=== PATIENT | male | born 1940 | race Caucasian/White ===

== ENCOUNTER 2024-03-11 07:30 | Inpatient (IN) ==
[2024-03-11 08:18] LABS: Basophils # (Auto) 0.02 K/mcL (0.00-0.30); Basophils % (Auto) 0.2 % (0.0-2.0); Eosinophils # (Auto) 0.01 K/mcL (0.00-0.70); Eosinophils % (Auto) 0.1 % (0.0-7.0); Hematocrit 34.7 % (40.1-51.0); Hemoglobin 11.4 g/dL (13.7-17.5); Lymphocytes # (Auto) 0.47 K/mcL (1.50-4.80); Lymphocytes % (Auto) 4.1 % (15.5-49.0); Mean Cell Volume 94.3 fL (80.0-100.0); Mean Corpuscular HGB Conc 32.9 g/dL (31.0-36.0); Mean Platelet Volume 10.5 fL (8.8-12.5); Monocytes # (Auto) 0.89 K/mcL (0.10-0.90); Monocytes % (Auto) 7.8 % (1.0-12.0); Neutrophils % (Auto) 87.5 % (38.0-78.0); Platelet Count 147 K/mcL (140-440); RBC 3.68 M/mcL (4.63-6.08); Red Cell Distribution Width 14.3 % (11.5-14.5); WBC 11.4 K/mcL (4.5-11.0)
[2024-03-11] MEDS: fentaNYL 100 MCG/2 ML VIAL IV ONE (08:35)
[2024-03-11] MEDS: 0.9 % SODIUM CHLORIDE 1,000 ML IV ONE ×2 (08:35→09:52)
[2024-03-11] MEDS: ONDANSETRON 4 MG/2 ML VIAL IV ONE (08:36)
[2024-03-11 08:45] LABS: ALT/SGPT 11 U/L (<40); AST/SGOT 16 U/L (<40); Albumin 3.6 gm/dL (3.2-5.2); Albumin/Globulin Ratio 1.3 (1.0-2.3); Alkaline Phosphatase 106 U/L (39-117); Bilirubin,Total 0.6 mg/dL (0.1-1.0); Blood Urea Nitrogen 33 mg/dL (8-23); Calcium 8.9 mg/dL (8.6-10.4); Carbon Dioxide 22 mmol/L (22-30); Chloride 99 mmol/L (96-108); Globulin 2.7 gm/dL (2.2-3.7); Glomerular Filtration Rate 30; Glucose 178 mg/dL (70-105)
[2024-03-11 09:07] LABS: Appearance,Urine HAZY (Clear); Bilirubin,Urine Negative (Negative); Color,Urine RED; Culture Indicated,Urine Yes; Glucose,Urine (UA) Negative (Negative); Ketones,Urine Negative (Negative); Leukocyte Esterase,Urine 75 /uL (Negative); Mucus,Urine MOD /hpf; Nitrate,Urine Negative (Negative); Protein,Urine 100 mg/dL (Negative); Specific Gravity,Urine 1.015 (1.000-1.035); Urine RBC > 182 /hpf (0-1); Urine Squamous Epithelial Cell 0 /hpf (0-4); Urine WBC > 182 /hpf (0-4); Urobilinogen,Urine Negative
[2024-03-11] MEDS: cefTRIAXone 2 GM in DEXTROSE 5% IN WATER 50 ML IV ONE (09:31)
[2024-03-11] MEDS ORDERED: ONDANSETRON 4 MG/2 ML VIAL IV PRN (11:49)
[2024-03-11] MEDS ORDERED: HYDROcodone/APAP 5/325MG TABLET PO PRN (11:49)
[2024-03-11] MEDS ORDERED: LACTULOSE 20 GM/30 ML ORAL.SOL PO PRN (11:49)
[2024-03-11] MEDS ORDERED: ACETAMINOPHEN 325 MG TABLET PO PRN (11:49)
[2024-03-11] MEDS ORDERED: MAGNESIUM HYDROXIDE 30 ML ORAL.SUSP PO PRN (11:49)
[2024-03-11] MEDS: LACTATED RINGERS 1,000 ML IV SCH (13:47)
[2024-03-11] MEDS: LIDOCAINE 2% URO-JET 10 ML JEL.PF.APP UR ONE ×2 (13:47→16:56)
[2024-03-11] MEDS: 0.9 % SODIUM CHLORIDE 10 ML SYRINGE IV SCH (16:56)
[2024-03-11] MEDS: SENNOSIDES 1 TABLET PO PRN (20:57)
[2024-03-11] MEDS: VITAMIN D3 125 MCG TABLET PO SCH (20:58)
[2024-03-11] MEDS: TAMSULOSIN 0.4 MG CAPSULE PO SCH (20:58)
[2024-03-11] MEDS: VIT A,C & E/LUTEIN/MINERALS TABLET PO SCH (20:58)
[2024-03-11] MEDS: DOCUSATE SODIUM 100 MG CAPSULE PO SCH (20:58)
[2024-03-11] MEDS: MAGNESIUM SULFATE 0 GM/0 ML BAG IV ONE (21:32)
[2024-03-12 06:30] LABS: Basophils # (Auto) 0.01 K/mcL (0.00-0.30); Basophils % (Auto) 0.2 % (0.0-2.0); Eosinophils # (Auto) 0.11 K/mcL (0.00-0.70); Eosinophils % (Auto) 2.2 % (0.0-7.0); Hematocrit 32.7 % (40.1-51.0); Hemoglobin 10.6 g/dL (13.7-17.5); Lymphocytes # (Auto) 0.88 K/mcL (1.50-4.80); Lymphocytes % (Auto) 17.6 % (15.5-49.0); Mean Cell Volume 95.9 fL (80.0-100.0); Mean Corpuscular HGB Conc 32.4 g/dL (31.0-36.0); Mean Platelet Volume 11.2 fL (8.8-12.5); Monocytes # (Auto) 0.66 K/mcL (0.10-0.90); Monocytes % (Auto) 13.2 % (1.0-12.0); Neutrophils % (Auto) 66.6 % (38.0-78.0); Platelet Count 135 K/mcL (140-440); RBC 3.41 M/mcL (4.63-6.08); Red Cell Distribution Width 14.5 % (11.5-14.5)
[2024-03-12 06:46] LABS: C-Reactive Protein 8.84 mg/dL (0.03-0.80)
[2024-03-12 06:47] LABS: ALT/SGPT < 5 U/L (<40); AST/SGOT 14 U/L (<40); Albumin/Globulin Ratio 1.3 (1.0-2.3); Alkaline Phosphatase 88 U/L (39-117); Bilirubin,Total 0.6 mg/dL (0.1-1.0); Blood Urea Nitrogen 25 mg/dL (8-23); Calcium 8.9 mg/dL (8.6-10.4); Carbon Dioxide 23 mmol/L (22-30); Chloride 106 mmol/L (96-108); Globulin 2.3 gm/dL (2.2-3.7); Glomerular Filtration Rate 43; Glucose 114 mg/dL (70-105)
[2024-03-12] MEDS: ATORVASTATIN 40 MG TABLET PO SCH (08:44)
[2024-03-12] MEDS: amLODIPine 10 MG TABLET PO SCH (08:44)
[2024-03-12] MEDS: METOPROLOL SUCCINATE 50 MG TAB.XL.24H PO SCH (08:44)
[2024-03-12] MEDS: traMADol 50 MG TABLET PO SCH (08:45)
[2024-03-12] MEDS: ALLOPURINOL 300 MG TABLET PO SCH (08:46)
[2024-03-12] MEDS: cefTRIAXone 2 GM in DEXTROSE 5% IN WATER 50 ML IV SCH (08:46)
[2024-03-12] MEDS: OMEPRAZOLE 20 MG CAPSULE PO SCH (08:46)
[2024-03-12] MEDS ORDERED: [UNRECOGNIZED DRUG - OTHER] PO SCH (09:00)
[2024-03-12] MEDS: POLYETHYLENE GLYCOL 3350 17 GM PACKET PO PRN (20:15)
[2024-03-13 06:16] LABS: Basophils # (Auto) 0.04 K/mcL (0.00-0.30); Basophils % (Auto) 0.8 % (0.0-2.0); Eosinophils % (Auto) 3.8 % (0.0-7.0); Hematocrit 32.7 % (40.1-51.0); Hemoglobin 10.8 g/dL (13.7-17.5); Lymphocytes # (Auto) 0.87 K/mcL (1.50-4.80); Lymphocytes % (Auto) 16.7 % (15.5-49.0); Mean Platelet Volume 10.8 fL (8.8-12.5); Monocytes # (Auto) 0.65 K/mcL (0.10-0.90); Monocytes % (Auto) 12.5 % (1.0-12.0); Neutrophils % (Auto) 65.8 % (38.0-78.0); Platelet Count 149 K/mcL (140-440); RBC 3.48 M/mcL (4.63-6.08); Red Cell Distribution Width 14.4 % (11.5-14.5); WBC 5.2 K/mcL (4.5-11.0)
[2024-03-13 06:27] LABS: ALT/SGPT 7 U/L (<40); AST/SGOT 14 U/L (<40); Albumin 3.1 gm/dL (3.2-5.2); Albumin/Globulin Ratio 1.3 (1.0-2.3); Alkaline Phosphatase 87 U/L (39-117); Bilirubin,Total 0.5 mg/dL (0.1-1.0); Blood Urea Nitrogen 24 mg/dL (8-23); C-Reactive Protein 5.01 mg/dL (0.03-0.80); Calcium 9.2 mg/dL (8.6-10.4); Carbon Dioxide 25 mmol/L (22-30); Chloride 104 mmol/L (96-108); Globulin 2.4 gm/dL (2.2-3.7); Glomerular Filtration Rate 56; Glucose 122 mg/dL (70-105)
[2024-03-13] MEDS: ASPIRIN 81 MG TAB.CHEW PO SCH (08:20)
[2024-03-13 11:36] VITALS: TEMP 98.2; O2SAT 95
== END 2024-03-13 10:55 | disposition home or self-care (01) | DRG 682 ==
LOC: ED 07:30 → ICU 12:35
PROVIDERS: ADMIT Student in an Organized Health Care Education/Training Program; ATTEND Student in an Organized Health Care Education/Training Program